=== PATIENT | male | born 1990 | race Two or more races ===

== ENCOUNTER 2022-03-17 19:43 | Emergency (ER) | payer MEDICAID, OTHER ==
[~2022-03-17] VITALS: Ht 177.8 cm; Wt 72.6 kg
[2022-03-17 20:00] VITALS: BP 116/68
--- NOTE | 2022-03-17 20:19 | NUR ---
Patient discharged to home in stable condition. Written and verbal after care instructions given. Patient verbalizes understanding of instruction.
[2022-03-17] MEDS ORDERED: CHLORDIAZEPOXIDE HCL 25 MG CAPSULE PO ONE (20:30)
[2022-03-17] MEDS ORDERED: DIPHENHYDRAMINE HCL 12.5 MG/5 ML UDC PO ONE (20:30)
[2022-03-17] MEDS ORDERED: DIAZEPAM 5 MG TABLET PO ONE (20:30)
[2022-03-17] MEDS ORDERED: CHLORDIAZEPOXIDE HCL 25 MG CAPSULE ONE (20:48)
[2022-03-17] MEDS ORDERED: DIAZEPAM 5 MG TABLET ONE (20:49)
[2022-03-17] MEDS ORDERED: diphenhydrAMINE HCL 25 MG CAPSULE ONE (20:49)
--- NOTE | 2022-03-21 20:52 | NUR ---
TUCKER HOLM MADE AWARE PATIENT TOOK 25 MG LIBRIUM
== END 2022-03-17 20:57 | disposition home or self-care (01) ==
LOC: ER 19:45
DX: F13.239 Sedative, hypnotic or anxiolytic dependence with withdrawal, unspecified (principal); F11.10 Opioid abuse, uncomplicated; F15.10 Other stimulant abuse, uncomplicated; F17.200 Nicotine dependence, unspecified, uncomplicated; Z59.00 Homelessness unspecified
CPT/HCPCS: 99284; Q0163 ×2